=== PATIENT | male | born 1950 | race Caucasian/White ===

== ENCOUNTER 2021-06-01 12:11 | Emergency (ER) | payer MEDICARE, OTHER, SELFPAY ==
[2021-06-01 12:22] VITALS: BP 121/86; PULSE 106; RESP 16; TEMP 36.8; O2SAT 100
--- NOTE | 2021-06-01 12:31 | ED.GENADULT ---
HPI - General Adult General Chief complaint: Dental/Oral Stated complaint: Pain on right side of Head Time Seen by Provider: 06/01/21 12:50 Source: patient and RN notes reviewed Mode of arrival: ambulatory Limitations: no limitations History of Present Illness HPI narrative: 70-year-old male presents with concern for pain to the right jaw that radiates to the right side of the head. He also reports feeling up impacted wax in the right ear. He denies fever, body aches. Denies acute dental trauma. He denies intervention for his pain. Reports symptoms started on Sunday. Denies temporal pain, headache. Denies drainage from the ear. Denies rhinorrhea, nasal congestion, sore throat, cough. MD complaint: Right jaw pain Related Data Home Medications Medication Instructions Recorded Confirmed finasteride 5 mg tablet 5 mg PO DAILY 10/14/19 06/01/21 atorvastatin 20 mg PO DAILY 06/01/21 06/01/21 Allergies Allergy/AdvReac Type Severity Reaction Status Date / Time pseudoephedrine AdvReac Intermediate URINARY Verified 06/01/21 12:31 RETENTION Review of Systems Review of Systems: CONSTITUTIONAL: Denies malaise, chills, sweats, or fever. EYES: Denies visual changes, redness, or discharge. ENT: Denies rhinorrhea, congestion, sinus pain, otalgia or sore throat. Reports decreased hearing in the right ear. Reports right jaw/dental pain CARDIOVASCULAR: Denies chest pain, palpitations, or edema. RESPIRATORY: Denies cough or dyspnea. GASTROINTESTINAL: Denies abdominal pain, nausea, vomiting SKIN: Denies rash or itching. MUSCULOSKELETAL: Denies back pain, joint pain, or myalgia. NEUROLOGIC: Denies numbness, weakness, or headache. All systems reviewed & are unremarkable except as noted in HPI and below PMFSH Past Medical History Medical History (Updated 06/01/21 @ 13:12 by Yesika Harris NP) BPH loc w urin obs/LUTS GERD (gastroesophageal reflux disease) Hip pain, bilateral Hypertension Insomnia Low back pain Skin cancer Surgical History Surgical History (Updated 10/04/20 @ 11:29 by Sebas Wilder PA-C) History of hernia repair Family History Family History Father Acute myocardial infarction Father CAD (coronary artery disease) Mother Pancreatic tumor Social History Social History Smoking status: Current every day smoker Tobacco type: cigarettes Second hand tobacco smoke exposure: No Alcohol intake: never Substance use: never Substance use type: does not use Gender identity (if verbalized by the patient): Male Comments At time of signature, agree with nursing past medical, surgical, social and family history. There is no relevant family history pertinent to the presenting complaint Exam Narrative: GENERAL: Well-appearing, well-nourished, and in no acute distress. HEAD: Normocephalic, atraumatic. EYES: PERRLA, conjunctivae clear, and EOMI. No nystagmus. ENT: Nares clear, turbinates pink, no rhinorrhea or epistaxis. Mucous membranes moist. Left TM pearly jenkins with sharp light reflex, right TM not visible due to cerumen impaction; no tragal tenderness. Oropharynx without erythema or lesions. Tonsils not enlarged and without exudate. Erythema, edema surrounding tooth #30 without periapical abscess noted NECK: Supple. No lymphadenopathy. CHEST: No respiratory distress. Speaks in full sentences. HEART: Regular rate and rhythm. SKIN: Warm, dry, no rash. NEURO: Alert and oriented x3. No focal deficits. PSYCH: Normal mood and affect Course Course Emergency Course: Patient is aware of diagnosis, understands and agrees to treatment plan. Anticipatory guidance given. Patient agrees to follow-up as directed and is aware of reasons to seek care at the emergency department. Portions of this record may have been created with voice recognition software Vital Signs Vital signs: Vital Sign
[2021-06-01 12:34] VITALS: BP 121/86; PULSE 106; RESP 16; TEMP 36.8; O2SAT 100
== END 2021-06-01 13:22 | disposition home or self-care (01) ==
PROVIDERS: Emergency Provider Nurse Practitioner
DX: H61.21 Impacted cerumen, right ear (principal); K08.89 Other specified disorders of teeth and supporting structures; F17.210 Nicotine dependence, cigarettes, uncomplicated; N40.1 Benign prostatic hyperplasia with lower urinary tract symptoms; K21.9 Gastro-esophageal reflux disease without esophagitis; I10 Essential (primary) hypertension; Z85.828 Personal history of other malignant neoplasm of skin
CPT/HCPCS: 69210; 99213; G0463

== ENCOUNTER 2021-08-19 10:37 | Outpatient (CLI) | payer MEDICARE, OTHER, SELFPAY ==
--- NOTE | ~2021-08-19 | CT_ITS ---
EXAMINATION: CT brain wo/w con DATE: 08/19/2021 11:20 INDICATION: Diplopia. TECHNIQUE: Computed tomography (CT) of the head was performed without and with 100 mL Omnipaque 350 i ntravenous contrast. The mA was adjusted according to patient size. Iterative reconstruction techniqu e was employed. The dose-length product was 1210.67 mGy-cm. COMPARISON: None FINDINGS: There is no intracranial hemorrhage, acute infarction, or abnormal intracranial mass lesion . The ventricles are normal in size. There is mild mucosal thickening in the paranasal sinuses. There is a small left mastoid effusion. The orbits are normal. IMPRESSION: 1. Normal brain. Reviewed, dictated and finalized at location A. IMPRESSION: 1. Normal brain.
[2021-08-19 11:14] LABS: Estimated Glomerular Filt Rate 54
== END 2021-08-19 10:38 | disposition home or self-care (01) ==
PROVIDERS: Visit Provider Specialist
DX: H49.01 Third [oculomotor] nerve palsy, right eye (principal)
CPT/HCPCS: 70470; Q9967

== ENCOUNTER 2021-08-26 07:50 | Outpatient (CLI) | payer MEDICARE, OTHER, SELFPAY ==
--- NOTE | ~2021-08-26 | CT_ITS ---
EXAMINATION: CTA brain EXAM DATE: 08/26/2021 08:37 INDICATION: 3rd nerve palsy . Double vision. TECHNIQUE: Noncontrast head CT. Spiral CT angiogram cerebral arteries performed with intravenous in jection of 100 mL Omnipaque 350. Axial, coronal and sagittal images reviewed. Additional reformatted images created on dedicated 3-D workstation. The dose-length product (DLP) for this examination was 1222.88 mGy-cm. The exposure was tailored according to patient size, and iterative reconstruction (ASIR) was used as additional dose reduction technique. Comparison is made to prior examination from 08/19/2021. FINDINGS: There is no distal carotid or vertebral basilar arterial dissection or fibromuscular dysp lasia. There are no cerebral artery aneurysms. There is symmetric cerebral artery arborization. The s agittal, transverse and sigmoid sinuses enhance normally, no venous sinus thrombosis. Internal cerebr al veins also enhance normally. The right vertebral artery is diminutive. Unremarkable prepontine cistern. There is no acute intraparenchymal hemorrhage. No evidence of intra parenchymal brain mass lesion. No evidence of acute infarction. There is no mass effect or midline s hift. There is no obstructive hydrocephalus suspected. There are no extra-axial collections. IMPRESSION: No acute intracranial findings or cerebral artery aneurysm. Reviewed, dictated and finalized at location B.
== END 2021-08-26 07:51 | disposition home or self-care (01) ==
LOC: ANHIMG 07:55
PROVIDERS: PCP Family Medicine; Visit Provider Specialist
DX: G58.8 Other specified mononeuropathies (principal)
CPT/HCPCS: 70496; Q9967

== ENCOUNTER 2021-09-20 10:53 | Observation (INO) | payer MEDICARE, OTHER, SELFPAY ==
--- NOTE | ~2021-09-20 | XR_ITS ---
EXAMINATION: XR lumbar spine 2-3V EXAM DATE: 09/20/2021 11:56 INDICATION: Back pain. Injury. TECHNIQUE: Lumber spine frontal, lateral, lateral L5-S1 projections for interpretation. Comparison is made to prior examination from 2016. FINDINGS: There is approximately 1.5 cm density projecting over left mid abdomen, possible genitourin kenn stone. Mild lumbar dextroscoliosis. Sacrum, sacroiliac joints, sacral arcuate lines are intact. T he vertebral bodies are aligned in the AP dimension. There is moderate disc disease L5-S1. There are no acute fractures identified. Moderate lumbar facet arthropathy. There is moderate right hip primary osteoarthritis. IMPRESSION: 1. No acute fracture identified. 2. Possible 1.5 cm left kidney stone. 3. Lumbar spondylosis. Reviewed, dictated and finalized at location A. TING MACHINE OPERATOR TAPE RULES
--- NOTE | ~2021-09-20 | CT_ITS ---
EXAMINATION: CT chest abdomen pelvis w con DATE: 09/20/2021 13:12 INDICATION: Lung mass. TECHNIQUE: Computed tomography (CT) of the chest, abdomen, and pelvis was performed with 100 mL Omnip aque 350 intravenous contrast. Automated exposure control and iterative reconstruction technique were employed. The dose-length product was 498.84 mGy-cm. COMPARISON: CT abdomen and pelvis 09/13/2017, chest CT 03/13/2016 FINDINGS: CHEST CT: There is mild emphysema. There is a 4.4 x 2.1 cm mass in right lung upper lobe. There is mild scarrin g at left lung apex. There is an 8 mm nodule in left lower lobe, new from 03/13/2016. No pleural effus ion. The heart size is normal. No pericardial effusion. There are coronary artery calcifications. The re is a mildly enlarged right hilar lymph node. There is right paratracheal lymphadenopathy measuring 6.5 x 4.6 cm with invasion of superior vena cava, which is not totally occluded. There is mild bilat eral gynecomastia. There is mild thoracic spondylosis. ABDOMEN/PELVIS CT: The liver demonstrates focal steatosis adjacent to ligamentum teres. There is a focal wall calcificat ion in the gallbladder, which is normal in size. Calcifications in the pancreas are consistent with c hronic pancreatitis. There is a 14 mm cystic lesion in the head of the pancreas, likely benign. Left adrenal gland is normal. There is a 2.4 cm mass in right adrenal gland which is chronic, consistent w ith an adenoma. There is cortical thinning of the kidneys. There is a 1.4 cm stone in left kidney. Th ere are cysts in left kidney measuring up to 2.6 cm. The prostate is moderately enlarged. There is a left inguinal hernia containing fat. There is diverticulosis of the colon without evidence of diverti culitis. There are no dilated loops of bowel. The appendix is normal. There are no pathologically enl arged lymph nodes. There is no free intraperitoneal fluid. There is severe osteoarthritis of the hips . There is severe lower lumbar spondylosis. IMPRESSION: 1. Right lung upper lobe mass, consistent with primary bronchogenic carcinoma. 2. Right hilar and mediastinal lymphadenopathy and left lower lobe pulmonary nodule, consistent with metastatic disease. Consider bronchoscopy for diagnosis. Reviewed, dictated and finalized at location B. CCO PRIMER MACHINE OPERATOR IMPRESSION: 1. Right lung upper lobe mass, consistent with primary bronchogenic carcinoma. 2. Right hilar and mediastinal lymphadenopathy and left lower lobe pulmonary no dule, consistent with metastatic disease. Consider bronchoscopy for diagnosis.
--- NOTE | ~2021-09-20 | XR_ITS ---
EXAMINATION: XR chest 2V EXAM DATE: 09/20/2021 11:55 INDICATION: Weakness, fall, back pain. TECHNIQUE: Frontal and lateral projections of the chest obtained and reviewed. Comparison is made to prior examination from 08/07/2007. FINDINGS: Interval development of right suprahilar mass, widened paratracheal stripe. Appearances courtney picious for lung cancer; recommend CT chest. There are no pleural effusions. The cardiomediastinal s ilhouette is within normal limits. There is no pneumothorax suspected. The bones and soft tissues a re unremarkable. IMPRESSION: Right suprahilar/paraspinal mass; recommend CT chest for further evaluation, with contras t if able.. Reviewed, dictated and finalized at location A. MACISTS IMPRESSION: Right suprahilar/paraspinal mass; recommend CT chest for further ev aluation, with contrast if able..
--- NOTE | ~2021-09-20 | XR_ITS ---
EXAMINATION: XR thoracic spine 2V EXAM DATE: 09/20/2021 11:56 INDICATION: Back pain, fall. TECHNIQUE: Frontal and lateral projections of the thoracic spine as well as lateral swimmers projecti on of the upper thoracic spine for interpretation. There is no prior study for comparison. FINDINGS: There is right paraspinal/suprahilar mass. There are no acute fractures identified. Mild th oracic spondylosis. The vertebral bodies are aligned in the AP dimension. No endplate erosive change. IMPRESSION: 1. Right suprahilar/paraspinal mass; chest CT indicated. 2. Mild thoracic spondylosis. Reviewed, dictated and finalized at location A. TEACHER
--- NOTE | ~2021-09-20 | CT_ITS ---
EXAMINATION: CT brain wo con DATE: 09/20/2021 15:41 INDICATION: Headache. TECHNIQUE: Computed tomography (CT) of the head was performed without intravenous contrast. The mA wa s adjusted according to patient size. Iterative reconstruction technique was employed. The dose-lengt h product was 681.00 mGy-cm. COMPARISON: Head CT 08/26/2021 FINDINGS: There is a 2.5 cm peripheral enhancing mass involving the right christine, midbrain, and right c erebral peduncle with surrounding vasogenic edema. There is a 9 mm enhancing mass in inferomedial lef t cerebellum. There is no intracranial hemorrhage or acute ischemic infarct. The ventricles are lila l in size. There is mild mucosal thickening in the paranasal sinuses. The orbits are normal. There is a small left mastoid effusion. IMPRESSION: 1. Brainstem mass and left cerebellar mass, consistent with metastatic disease. Reviewed, dictated and finalized at location B. UP OPERATOR
[2021-09-20 11:00] VITALS: BP 130/97; PULSE 109; RESP 20; TEMP 36.8; O2SAT 100
--- NOTE | 2021-09-20 11:01 | PC.NURSE ---
Brother Jayme Perrin to be contacted with updated on pt status immediately at [phone]
--- NOTE | 2021-09-20 11:27 | ECG_ITS ---
Measurements Intervals [place] Rate: 102 P: 60 OK: 160 QRS: -59 QRSD: 106 T: 54 QT: 328 QTc: 429 Interpretive Statements SINUS TACHYCARDIA LEFT AXIS DEVIATION INCOMPLETE RIGHT BUNDLE BRANCH BLOCK DELAYED PRECORDIAL R/S TRANSITION BASELINE WANDER- II, III, AVR, AVL, AVF, V4-V6 BORDERLINE ECG Electronically Signed On 09-20-2021 16:25:48 RECREATION AIDE by Jerad Roman D.O.
--- NOTE | 2021-09-20 11:31 | ED.GENADULT ---
HPI - General Adult General Chief complaint: Unspecified Stated complaint: Can't take care of myself Time Seen by Provider: 09/20/21 11:12 Source: patient History of Present Illness HPI narrative: Patient is a 71 y/o male complaining of moderate generalized weakness for over 1 month. There is no known alleviating or exacerbating factor. He also has some right eye lid drooping and right low back pain. He states that he lives by himself and he is unable to care for himself. 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 Related Data Allergies Allergy/AdvReac Type Severity Reaction Status Date / Time pseudoephedrine AdvReac Intermediate URINARY Verified 06/01/21 12:31 RETENTION Review of Systems Constitutional: Constitutional: Denies chills, Denies fever(s), Denies headache(s) and Reports weakness Eyes: Eyes: Denies blurry vision and Reports other (ptosis) ENT: Denies headache(s) and Denies neck pain Cardiovascular: Cardiovascular: Denies chest pain and Denies dyspnea Respiratory: Respiratory: Denies cough and Denies dyspnea Gastrointestinal: Gastrointestinal: Denies abdominal pain, Denies diarrhea, Denies nausea and Denies vomiting Genitourinary: Genitourinary: Denies hematuria and Denies dysuria Musculoskeletal: Musculoskeletal: Reports back pain and Denies neck pain Neurologic: Denies headache(s) and Reports weakness PMFSH Past Medical History Medical History BPH loc w urin obs/LUTS GERD (gastroesophageal reflux disease) Hip pain, bilateral Hypertension Insomnia Low back pain Skin cancer Surgical History Surgical History History of hernia repair Family History Family History Father Acute myocardial infarction Father CAD (coronary artery disease) Mother Pancreatic tumor Social History Social History Smoking status: Current every day smoker Tobacco type: cigarettes Second hand tobacco smoke exposure: No Alcohol intake: never Substance use: never Substance use type: does not use Gender identity (if verbalized by the patient): Male Exam Const: General: no acute distress and well developed Orientation/consciousness: oriented to person, oriented to place, oriented to time and patient oriented x3 HENMT: Head: normocephalic Ears: external ears normal General nose exam: Normal external nose present Eyes: General: appearance normal, both eyes and all related structures Eyelids: other (right ptosis) Conjunctivae: conjunctivae normal Neck: Neck: normal visual inspection and full ROM Chest: Chest palpation & inspection: normal inspection of the chest and no tenderness Resp: Effort & Inspection: normal respiratory effort Auscultation: clear to auscultation bilaterally Cardio: Rate: regular rate Rhythm: regular rhythm GI: GI Palp: No abdominal tenderness and Yes Soft to palpation Skin: General skin exam: normal color and turgor normal Neuro: General: oriented to person, oriented to place, oriented to time and patient oriented x3 Cranial nerves: Yes Other cranial nerve findings present (left facial droop) Cognition (Neuro): normal cognition Extrem: General: normal to inspection, full ROM and no pedal edema Psych: Appearance: grossly normal Mental Status: mental status grossly normal Affect: normal affect Course Consultations Consultation #1: Discussed with PAULIE Crenshaw, who agrees to admit. Date: 09/20/21 Time: 14:15 Consultation #2: Discussed with Dr. Vernon, who agrees to consult. Date: 09/20/21 Time: 14:53 Consultation #3: Discussed with Dr. Florentino, who agrees to admit. Date: 09/20/21 Time: 14:56 Vital Signs Vital signs: Vital Signs Temperature 36.8 C 09/20/21 11:00 Pulse Rate 109 H 09/20/21 11:00 Respir
[2021-09-20 11:47] LABS: Basophils Absolute Auto 0.1 K/mm3 (0.0-0.1); Basophils Percent Auto 0.6 % (0.2-1.2); Eosinophils Absolute Auto 1.1 K/mm3 (0-0.3); Eosinophils Percent Auto 4.5 % (0-4.4); Hematocrit 39.4 % (42.0-52.0); Hemoglobin 13.4 g/dL (14.0-18.0); Immature Granulocyte Absolute 0.51 K/mm3 (0.00-0.031); Immature Granulocyte Percent A 2.1 % (0-0.5); Lymphocytes Absolute Auto 2.13 K/mm3 (0.9-3.2); Lymphocytes Percent Auto 8.9 % (18.3-44.2); Mean Corpuscular Hemoglobin 31.6 pg (26-34); Mean Corpuscular Volume 92.9 fl (80-100); Mean Platelet Volume 8.9 fl (7.4-10.4); Monocytes Percent Auto 4.2 % (2.6-8.5); Neutrophils Absolute Auto 19.1 K/mm3 (1.3-6.7); Neutrophils Percent Auto 79.7 % (45.5-73.1); Platelet Count Result 380 k/mm3 (150-375); Red Blood Count 4.24 M/mm3 (4.6-6.20); Red Cell Distribution Width 13.8 % (11.5-14.5); White Blood Count 23.9 K/mm3 (4.5-10.0)
[2021-09-20 12:01] LABS: Alanine Aminotransferase 13 U/L (4-50); Albumin Level 4.4 g/dL (3.5-5.1); Alkaline Phosphatase 61 U/L (38-126); Anion Gap 12 mmol/L (8-16); Aspartate Amino Transferase 18 U/L (17-59); Bilirubin,Total 0.5 mg/dL (0.2-1.3); Blood Urea Nitrogen 22 mg/dL (9-20); Calcium 10.1 mg/dL (8.4-10.2); Carbon Dioxide 24 mmol/L (22-30); Chloride 97 mmol/L (98-107); Estimated CRCL calculation 65 ml/min; Estimated Glomerular Filt Rate > 60; Glucose 175 mg/dL (65-110); Potassium 4.1 mmol/L (3.4-5.0); Sodium 133 mmol/L (137-145)
[2021-09-20 12:36] LABS: Add Urine Microscopic? YES; Appearance Urine Clear (Clear); Bilirubin Urine Negative (Negative); Blood Urine 1+ (Negative); Color Urine Yellow (Yellow); Glucose Urine UA Negative (Negative); Ketones Urine Negative (Negative); Leukocyte Esterase Ur 3+ LEU/UL (Negative); Mucus Urine Rare /lpf; Nitrate Urine Negative (Negative); Protein Urine Negative (Negative); Specific Grav Ur 1.023 (1.001-1.035); Urobilinogen Urine Negative mg/dL (<2.0); WBC Urine 21-30 /hpf
[2021-09-20 12:51] VITALS: BP 102/78; PULSE 80; RESP 19; O2SAT 99
[2021-09-20] MEDS: MORPHINE SULFATE (*CRX) 2 MG/ML INJ IV PUSH ×2 (14:25→19:41)
--- NOTE | 2021-09-20 15:23 | PM.IMHP ---
H&P: HPI History of Present Illness Date/Time: 09/20/21 15:23Kerry is a 71-year-old male patient who lives home alone with his 2 cats. The patient stated that he has had generalized weakness for 1 month. The patient stated that he has been having a poor appetite. The patient smokes about a pack a cigarettes a day. He denies any shortness of breath. 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 He was having right eye lid drooping. Which is chronic. He stated this is due to nerve damage. The patient stated that he was complaining of back pain near his right shoulder blade. His white count was noted to be 23.9. H&H is 13.4 and 39.4. Platelet count 380. Glucose 175. Patient has 1+ blood in his urine and 3+ leukocyte esterase. 11-20 wbc's and 21-30 wbc's. the patient was given morphine for discomfort. Chest abdomen pelvis CT was read as the following 1. Right lung upper lobe mass, consistent with primary bronchogenic carcinoma. 2. Right hilar and mediastinal lymphadenopathy and left lower lobe pulmonary nodule, consistent with metastatic disease. Consider bronchoscopy for diagnosis. lumbar spine x-ray was read as the following1. No acute fracture identified. 2. Possible 1.5 cm left kidney stone. 3. Lumbar spondylosis. thoracic spine read as the following per radiology1. Right suprahilar/paraspinal mass; chest CT indicated. 2. Mild thoracic spondylosis. pulmonary and Oncology have been consulted. The patient has been admitted to observation on the date of service 09/20/2021. Chief Complaint: weakness Review of Systems Review of Systems: All systems reviewed & are unremarkable except as noted in HPI and below Constitutional: Constitutional: Reports as per HPI and Reports no additional constitutional complaints Eyes: Eyes: Reports as per HPI and Reports no additional eye complaints ENT: Reports system reviewed and no additional complaints, except as documented and Reports Normal hearing present Cardiovascular: Cardiovascular: Reports no additional cardiovascular complaints Respiratory: Respiratory: Reports no additional respiratory complaints and Reports no additional respiratory complaints Gastrointestinal: Gastrointestinal: Reports as per HPI and Reports no additional gastrointestinal complaints Musculoskeletal: Musculoskeletal: Reports no additional musculoskeletal complaints Integumentary/Breasts: Skin/Breast: Reports system reviewed and no additional complaints, except as docu and Reports as per HPI Neurologic: Reports system reviewed and no additional complaints, except as documented, Reports as per HPI and Reports Normal hearing present Psychiatric: Psychiatric: Reports no additional psychiatric complaints and Reports as per HPI Endocrine: Endocrine: Reports no additional endocrine complaints Hematologic/Lymphatic: Hematologic/Lymphatic: Reports no additional hematologic/lymphatic complaints Allergic/Immunologic: Allergic/Immunologic: Reports no additional allergic/immunologic complaints [facility] Past Medical History Medical History (Updated 09/20/21 @ 15:49 by Flower Borja NP) BMI 25.0-25.9,adult BPH loc w urin obs/LUTS Encounter for Medicare annual wellness exam GERD (gastroesophageal reflux disease) Hip pain, bilateral History of elevated PSA Hypertension Insomnia Low back pain Prostate cancer screening Renal insufficiency Skin cancer Surgical History Surgical History (Updated 09/20/21 @ 15:34 by Flower Borja NP) H/O parotidectomy from skin cancer to left side of his neck. History of hernia repair History of removal of pigmented skin lesion skin cancer from the left side of his neck Family History Family History Father Acute myocardial infarction Father CAD (coronary artery disease) Mother Panc
--- NOTE | 2021-09-20 17:47 | ADMGEN ---
This patient, Castillo Perrin, was admitted to 2 Medical Room 256-. Patient/family oriented to hospital policies and general routines including ID bracelet, bed and alarms, visiting hours, pain management, procedures, bathroom and other care routines, personal items, smoking policy, room service/diet, and visiting hours. Information on how to activate the Rapid Response Team has been discussed. Patient/Family are encouraged to report perceived risks to care and to ask questions if they do not understand what they are told or what they should do.
[2021-09-20 18:00] VITALS: BP 105/73; PULSE 97; RESP 16; TEMP 36.3; O2SAT 99
--- NOTE | 2021-09-20 18:17 | PM.CNPUL ---
Assessment and Plan Assessment and plan (1) Lung mass: Code(s): R91.8 - Other nonspecific abnormal finding of lung field Status: Acute Assessment and Plan: 71-year-old man with diplopia, right chest pain, right eyelid ptosis and impaired extra ocular movements on right related to lung cancer with Mets to brain. In addition to right upper lobe mass with massive mediastinal lymphadenopathy and possible superior vena cava invasion there is a small left lower lobe nodule which could be metastatic as well. The lung mass is in the apical segment of the right upper lobe most likely not accessible via standard bronchoscopy. Will ask Interventional Radiology for CT-guided needle biopsy of the right upper lobe mass. (2) Mediastinal lymphadenopathy: Code(s): R59.0 - Localized enlarged lymph nodes Status: Acute (3) Superior vena caval occlusion: Code(s): I87.1 - Compression of vein Status: Acute (4) Brain metastasis: Code(s): C79.31 - Secondary malignant neoplasm of brain Status: Acute History of Present Illness History of Present Illness Consult date: 09/20/21 Chief complaint: weakness/lung mass Narrative: This 71-year-old man presented with a 1 month history of right chest pain, right eyelid ptosis and diplopia. The patient was in his usual state of health until approximately 1 month ago when he started having right anterior chest pain, of non pleuritic nature. He had no other respiratory symptoms such as shortness of breath, cough, sputum production, wheezing, hemoptysis or night sweats. He has had a history history of double vision and right eyelid ptosis for which he was evaluated on an outpatient basis by ophthalmology. Workup with a chest CT showed right upper lobe mass with marked mediastinal lymphadenopathy and superior vena cava invasion. There was also a small left lower lobe lung nodule. Head CT showed brainstem mass and left cerebellar mass consistent with metastatic disease. Review of Systems Review of Systems: The patient reported recent weight loss of approximately 20 lb. His appetite has decreased. He has acid reflux disease and has been on medications. He has no orthopnea. He has no palpitations. He has no nausea vomiting diarrhea or constipation. He has some increased urinary frequency. He has history of dry mouth especially following parotid gland surgery. Patient has had good appetite. Patient denied having fever chills or night sweats. Patient denied having cough or wheezing. [facility] Past Medical History Medical History (Updated 09/20/21 @ 18:31 by Jason Vernon MD) BMI 25.0-25.9,adult BPH loc w urin obs/LUTS Encounter for Medicare annual wellness exam GERD (gastroesophageal reflux disease) Hip pain, bilateral History of elevated PSA Hypertension Insomnia Low back pain Prostate cancer screening Renal insufficiency Skin cancer Surgical History Surgical History (Updated 09/20/21 @ 15:34 by Flower Borja NP) H/O parotidectomy from skin cancer to left side of his neck. History of hernia repair History of removal of pigmented skin lesion skin cancer from the left side of his neck Family History Family History Father Acute myocardial infarction Father CAD (coronary artery disease) Mother Pancreatic tumor Social History Social History (Updated 09/20/21 @ 15:35 by Flower Borja NP) Social History: The patient smoked a pack a cigarettes a day. He does not use any alcohol marijuana or illicit drugs. The patient lives home alone with 2 cats. Patient retired from the [employer]. His sister Dora is the durable power senior attorney for healthcare. He is single and has no children. Code status full code Smoking packs per day: 1.5 Smoking cigarettes per day: 30.0 Smoking status: Current every day smoker Tobacco type: cigarettes Second hand tobacc
[2021-09-20 20:29] VITALS: BP 115/67; PULSE 97
[2021-09-20] MEDS: HYDROmorphone HCL INJ (*CRX) 1 MG/ML SYR IV PUSH (20:56)
[2021-09-20] MEDS: PANTOPRAZOLE 40 MG TABLET PO (21:04)
[2021-09-20 21:08] VITALS: BP 105/68; PULSE 86; RESP 16; TEMP 37.1; O2SAT 97
--- NOTE | 2021-09-20 21:14 | P.PNCROSS_ITS ---
Event Note Event Note Event Note: I spoke with the hospitalist at [facility] about the patient. We reviewed vital signs, labs, scans, and patient's condition. The hospitalist agreed to accept the patient but we are awaiting a bed. The hospitalist name was jaison Wilder.
--- NOTE | 2021-09-20 21:22 | PHAR ---
The patient's home med of Phenylephrine 1% nasal spray has been verified.
[2021-09-20 23:35] VITALS: O2SAT 94
--- NOTE | 2021-09-21 01:44 | PC.NURSE ---
Triage w/ Jocelyn completed, patient has been placed on waiting list.
[2021-09-21] MEDS: LORazepam INJ (*CRX) 2 MG/ML VIAL 0.5 MG IV PUSH (03:50)
[2021-09-21 03:53] VITALS: BP 104/70; PULSE 97; RESP 16; TEMP 36.8; O2SAT 98
[2021-09-21 05:54] LABS: Basophils Absolute Auto 0.1 K/mm3 (0.0-0.1); Basophils Percent Auto 0.5 % (0.2-1.2); Eosinophils Absolute Auto 0.1 K/mm3 (0-0.3); Eosinophils Percent Auto 0.6 % (0-4.4); Hematocrit 42.6 % (42.0-52.0); Hemoglobin 14.5 g/dL (14.0-18.0); Immature Granulocyte Absolute 0.53 K/mm3 (0.00-0.031); Immature Granulocyte Percent A 2.5 % (0-0.5); Lymphocytes Absolute Auto 1.54 K/mm3 (0.9-3.2); Lymphocytes Percent Auto 7.3 % (18.3-44.2); Mean Corpuscular Hemoglobin 31.6 pg (26-34); Mean Corpuscular Volume 92.8 fl (80-100); Mean Platelet Volume 8.9 fl (7.4-10.4); Monocytes Absolute Auto 0.2 K/mm3 (0.1-0.6); Monocytes Percent Auto 0.9 % (2.6-8.5); Neutrophils Absolute Auto 18.7 K/mm3 (1.3-6.7); Neutrophils Percent Auto 88.2 % (45.5-73.1); Platelet Count Result 388 k/mm3 (150-375); Red Blood Count 4.59 M/mm3 (4.6-6.20); Red Cell Distribution Width 13.8 % (11.5-14.5); White Blood Count 21.2 K/mm3 (4.5-10.0)
[2021-09-21 05:57] LABS: Prothrombin Time 12.6 Seconds (11.1-14.7)
[2021-09-21 06:02] LABS: Alanine Aminotransferase 14 U/L (4-50); Albumin Level 4.6 g/dL (3.5-5.1); Alkaline Phosphatase 70 U/L (38-126); Anion Gap 10 mmol/L (8-16); Aspartate Amino Transferase 16 U/L (17-59); Bilirubin,Total 0.6 mg/dL (0.2-1.3); Blood Urea Nitrogen 25 mg/dL (9-20); Calcium 10.4 mg/dL (8.4-10.2); Carbon Dioxide 25 mmol/L (22-30); Chloride 96 mmol/L (98-107); Estimated CRCL calculation 65 ml/min; Estimated Glomerular Filt Rate > 60; Glucose 149 mg/dL (65-110); Magnesium 1.9 mg/dL (1.6-2.3); Potassium 4.7 mmol/L (3.4-5.0); Sodium 131 mmol/L (137-145)
[2021-09-21 06:06] LABS: Lactic Acid Reflex 1.2 mmol/L (0.7-2.1)
[2021-09-21 06:22] LABS: Hemoglobin A1C 5.7 % (<5.7)
[2021-09-21 06:48] LABS: Thyroid Stimulating Hormone Reflex 0.879 uIU/mL (0.465-4.68)
--- NOTE | 2021-09-21 07:10 | PM.IMPN ---
Subjective Date/time seen: 09/21/21 07:10 Objective Data Vital Signs Vital Signs: Vital Signs - 24 hr 09/20/21 11:00 09/20/21 12:51 09/20/21 18:00 Temperature 98.2 F 97.4 F L Pulse Rate 109 H 80 97 Respiratory Rate 20 19 16 Blood Pressure 130/97 H 102/78 105/73 Pulse Oximetry 100 99 99 09/20/21 20:29 09/20/21 21:08 09/20/21 23:35 Temperature 98.7 F Pulse Rate 97 86 Respiratory Rate 16 Blood Pressure 115/67 105/68 Pulse Oximetry 97 94 09/21/21 03:53 Temperature 98.2 F Pulse Rate 97 Respiratory Rate 16 Blood Pressure 104/70 Pulse Oximetry 98 Intake/Output Intake/Output: Intake & Output 09/18/21 09/19/21 09/20/21 09/21/21 23:59 23:59 23:59 23:59 Intake Total 50 400 Output Total 500 Balance 50 -100 Meds/Results Medications: Active Medications Generic Name Dose Route Start Last Admin Trade Name Freq PRN Reason Stop Dose Admin Atorvastatin Calcium 20 mg 09/21/21 09:00 Atorvastatin 20 [address] Table[address] [facility] Dexamethasone Sodium Phosphate 10 mg 09/20/21 19:40 09/20/21 21:01 Dexamethasone Sod Phos Inj 10 Mg/Ml 1 Ml Vial IV PUSH 10 mg DAILY RUEL Administration Enoxaparin Sodium 40 mg 09/21/21 09:00 Enoxaparin 40 Mg/0.4 Ml Syringe SUB-Q DAILY RUEL Finasteride 5 mg 09/21/21 09:00 Finasteride 5 Mg Tablet PO DAILY [facility] Fluticasone Propionate 2 spray 09/21/21 09:00 Fluticasone Propionate 0.05% Na Spr 16 Gm Btl (*Bkc) NASAL 10/21/21 08:59 DAILY RUEL Hydrochlorothiazide 12.5 mg 09/21/21 09:00 Hydrochlorothiazide 12.5 Mg Capsule PO DAILY RUEL Hydromorphone HCl 1 mg 09/21/21 00:48 Hydromorphone Hcl Inj (*Crx) 1 Mg/Ml Syr IV PUSH Q3H PRN Pain Rated 7-10 Ceftriaxone Sodium/Dextrose 1 gm in 50 mls @ 100 mls/hr 09/21/21 15:00 Rocephin 1 Gm/D5w 50 Ml IVPB Q24H RUEL Lisinopril 10 mg 09/21/21 09:00 Lisinopril 10 Mg Tablet PO 10/21/21 08:59 DAILY RUEL Lorazepam 0.5 mg 09/20/21 19:06 09/21/21 03:50 Lorazepam Inj (*Crx) 2 Mg/Ml Vial IV PUSH 0.5 mg Q4H PRN Administration Anxiety Nicotine 1 patch 09/21/21 09:00 Nicotine (*Pbkc) 21 Mg Patch TRANSDERM QAM RUEL Pantoprazole Sodium 40 mg 09/20/21 21:00 09/20/21 21:04 Pantoprazole 40 Mg Tablet PO 40 mg Q12HR RUEL Administration Phenylephrine HCl 1 spray 09/20/21 21:29 Home Med Phenylephrine 1% Na Spr (*Bkc) 15 Ml Btl NASAL Q4H PRN Congestion Tramadol HCl 50 mg 09/20/21 19:05 Tramadol Hcl (*Crx) 50 Mg Tablet PO Q8H PRN pain 4-6 Radiology Results: ITS Impressions Chest X-Ray 09/20/21 11:57 IMPRESSION: Right suprahilar/paraspinal mass; recommend CT chest for further evaluation, with contrast if able.. Thoracic Spine X-Ray 09/20/21 12:01 IMPRESSION: 1. Right suprahilar/paraspinal mass; chest CT indicated. 2. Mild thoracic spondylosis. Lumbar Spine X-Ray 09/20/21 12:03 IMPRESSION: 1. No acute fracture identified. 2. Possible 1.5 cm left kidney stone. 3. Lumbar spondylosis. Chest/Abdomen/Pelvis CT 09/20/21 13:21 IMPRESSION: 1. Right lung upper lobe mass, consistent with primary bronchogenic carcinoma. 2. Right hilar and mediastinal lymphadenopathy and left lower lobe pulmonary nodule, consistent with metastatic disease. Consider bronchoscopy for diagnosis. Head CT 09/20/21 15:44 IMPRESSION: 1. Brainstem mass and left cerebellar mass, consistent with metastatic disease. Labs Labs: Laboratory Results - last 24 hr 09/20/21 09/20/21 09/20/21 11:39 11:39 12:00 WBC 23.9 H RBC 4.24 L Hgb 13.4 L Hct 39.4 L MCV 92.9 MCH 31.6 MCHC 34.0 RDW 13.8 Plt Count 380 H MPV 8.9 Immature Gran % (Auto) 2.1 H Neut % (Auto) 79.7 H Lymph % (Auto) 8.9 L Terry % (Auto) 4.2 Eos % (Auto) 4.5 H Baso % (Auto) 0.6 Lymph # (Auto) 2.13 Terry # (Auto) 1.0 H Eos # (Auto) 1.1 H
[2021-09-21 08:00] VITALS: BP 112/75; PULSE 113; RESP 16; TEMP 36.4; O2SAT 97
[2021-09-21] MEDS: hydroCHLOROthiazide 12.5 MG CAPSULE PO (08:52)
[2021-09-21] MEDS: lisinopriL 10 MG TABLET PO (08:52)
[2021-09-21] MEDS: FINASTERIDE 5 MG TABLET PO (08:52)
[2021-09-21] MEDS: ATORVASTATIN 20 MG TABLET PO (08:52)
[2021-09-21] MEDS: PANTOPRAZOLE 40 MG TABLET PO (08:52)
[2021-09-21] MEDS: NICOTINE (*PBKC) 21 MG PATCH 1 PATCH TRANSDERM (08:52)
[2021-09-21] MEDS: ENOXAPARIN 40 MG/0.4 ML SYRINGE SUB-Q (08:53)
[2021-09-21] MEDS: FLUTICASONE PROPIONATE 0.05% NA SPR 16 GM BTL (*BKC) 2 SPRAY NASAL (08:53)
--- NOTE | 2021-09-21 11:49 | PM.TDS ---
Transfer Discharge Sum: Prov Provider Date of admission: 09/20/21 14:49 Primary care physician: Sheri Centeno MD Admitting clinician: Ingrid Bridges MD Consults: 09/20/21 Consult to Physician Routine Comment: Consulting Provider: Michael Jeffery Reason for consultation: lung mass Has provider been notified: Yes Consult to Physician Routine Comment: Consulting Provider: Jason Vernon Reason for consultation: lung mass Has provider been notified: Yes DS: Admitting Diagnosis Discharge Date 09/21/2021 Admitting Diagnosis Lung Mass DS: Discharge Diagnosis Discharge Diagnosis (1) Lung mass: Code(s): R91.8 - Other nonspecific abnormal finding of lung field Status: Acute Assessment and Plan: Right upper lobe mass c/w primary bronchogenic carcinoma noted on CT after patient presented to the ED for generalized weakness. 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 9 mm enhancing mass in inferomedial left cerebellum suspected metastasis. Patient given dexamethasone. Pulmonology consulted and recommended biopsy. Oncology was consulted. Patient will be transferred to [facility] for a higher level of care as this type of mass would involve a care team including a thoracic surgeon, which is not available at this hospital. -Appreciate recs from Pulmonology -Appreciate recs from Oncology -Transfer to [facility] (2) Brain metastasis: Code(s): C79.31 - Secondary malignant neoplasm of brain Status: Acute Assessment and Plan: 9 mm enhancing mass in inferomedial left cerebellum suspected metastasis to the brainstem. Patient given dexamethasone. Patient will be transferred to [facility] for a higher level of care. (3) UTI (urinary tract infection): Code(s): N39.0 - Urinary tract infection, site not specified Status: Acute Assessment and Plan: Positive leukocyte esterase on admission w/ leukocytosis. Ceftriaxone given x1. Will continue for transfer. (4) Primary hypertension: Code(s): I10 - Essential (primary) hypertension Status: Acute Assessment and Plan: Treaed outpatient with lisniopril and hydrochlorothiazide. Continue lisinopril 10 mg daily and hydrochlorothiazide 12.5 mg daily. (5) Hyperlipidemia: Qualifiers: Hyperlipidemia type: mixed hyperlipidemia Qualified Code(s): E78.2 - Mixed hyperlipidemia Code(s): E78.5 - Hyperlipidemia, unspecified Status: Acute Assessment and Plan: Continue home atorvastatin. (6) Hip pain, bilateral: Code(s): M25.551 - Pain in right hip; M25.552 - Pain in left hip Status: Acute Assessment and Plan: Chronic hip pain. Continue tramadol. (7) GERD (gastroesophageal reflux disease): Qualifiers: Esophagitis presence: esophagitis presence not specified Qualified Code(s): K21.9 - Gastro-esophageal reflux disease without esophagitis Code(s): K21.9 - Gastro-esophageal reflux disease without esophagitis Status: Acute Assessment and Plan: Takes omeprazole 40 mg day. (8) BPH loc w urin obs/LUTS: Code(s): N40.1 - Benign prostatic hyperplasia with lower urinary tract symptoms Status: Acute Assessment and Plan: Takes finasteride 5 mg daily. Continue finasteride. Transfer Discharge Sum: Med Medications Active and Home Medications: Home Medications tramadol 50 mg tablet 50 mg PO Q8H PRN #90 tablet 03/31/21 [Rx Confirmed 09/20/21] atorvastatin 20 mg tablet 20 mg PO DAILY #90 tablet 07/25/21 [Rx Confirmed 09/20/21] finasteride 5 mg tablet 5 mg PO DAILY #90 tablet 07/27/21 [Rx Confirmed 09/20/21] lisinopril 10 mg-hydrochlorothiazide 12.5 mg tablet 1 tablet PO DAILY #90 tablet 07/27/21 [Rx Confirmed 09/20/21] omeprazole 40 mg capsule,delayed release 40 mg PO BID #90 cap 07/27/21 [Rx Confirmed 09/20/21] [facility]
[2021-09-21 12:05] VITALS: BP 118/71; PULSE 113; RESP 16; TEMP 36.5; O2SAT 98
== END 2021-09-21 12:22 | disposition short-term general hospital (02) ==
LOC: ANHED 11:12 → ANH2MED 18:13
PROVIDERS: Internal Medicine Pulmonary Disease; Nurse Practitioner; Admitting Provider Internal Medicine; Emergency Provider Emergency Medicine; PCP Family Medicine; Visit Provider Family Medicine
DX: R91.8 Other nonspecific abnormal finding of lung field (principal); C79.31 Secondary malignant neoplasm of brain; I87.1 Compression of vein; R59.0 Localized enlarged lymph nodes; N39.0 Urinary tract infection, site not specified; H02.401 Unspecified ptosis of right eyelid; H53.2 Diplopia; M54.59 Other low back pain; R53.1 Weakness; I10 Essential (primary) hypertension; N40.1 Benign prostatic hyperplasia with lower urinary tract symptoms; N13.9 Obstructive and reflux uropathy, unspecified; K21.9 Gastro-esophageal reflux disease without esophagitis; M25.551 Pain in right hip; M25.552 Pain in left hip; E78.5 Hyperlipidemia, unspecified; G47.00 Insomnia, unspecified; R51.9 Headache, unspecified; F17.210 Nicotine dependence, cigarettes, uncomplicated; F12.90 Cannabis use, unspecified, uncomplicated; Z79.899 Other long term (current) drug therapy
CPT/HCPCS: 36415; 70450; 71046; 71260; 72070; 72100; 74177; 80053; 81001; 82728; 83036; 83605; 83735; 84443; 85025; 85610; 87040; 87086; 93005; 96365; 96372; 96375; 96376; 99285; A9270; G0378; J0696; J1100; J1170; J1650; J2060; J2270; Q9967